=== PATIENT | female | born 1980 | race Caucasian/White ===

== ENCOUNTER 2018-09-06 15:45 | Observation (INO) | payer OTHER ==
[~2018-09-06] VITALS: Ht 165.1 cm; Wt 79.4 kg
[~2018-09-06 15:45] MED LIST: DOCU-119 PO; IBUP-2071 PO; LEVO50 PO; PREN1TAB80 PO
[2018-09-06 16:35] VITALS: BP 116/61
[2018-09-06 16:36] LABS: BASOPHILS % (AUTO) 0.6 % (0.0-2.0); EOSINOPHILS % (AUTO) 3.5 % (1.0-6.0); HEMOGLOBIN 12.4 g/dL (12.0-16.0); LYMPHOCYTES # (AUTO) 1.3 K/uL (1.0-4.8); LYMPHOCYTES % (AUTO) 22.1 % (22.0-44.0); MEAN CORPUSCULAR HGB CONC 35.4 G/dL (31.0-37.0); MEAN CORPUSCULAR VOLUME 96 fL (80-100); MONOCYTES # (AUTO) 0.4 K/uL (0.1-1.0); MONOCYTES % (AUTO) 5.9 % (2.0-9.0); NEUTROPHILS # (AUTO) 4.1 K/uL (1.8-7.7); NEUTROPHILS % (AUTO) 67.9 % (40.0-70.0); PLATELET COUNT (AUTO) 138 K/uL (150-450); RED BLOOD CELL COUNT(AUTO) 3.64 MIL/uL (4.00-5.20); RED CELL DISTRIBUTION WIDTH 14.4 % (11.5-14.5)
[2018-09-06] MEDS ORDERED: LEVO75 PO (16:40)
[2018-09-06 16:48] LABS: ANION GAP 10 mmol/L (8-16); CARBON DIOXIDE 23 mmol/L (22-29); CHLORIDE 105 mmol/L (98-107); CREATININE 0.54 mg/dL (0.60-1.30); GLOMERULAR FILTR. RATE CALC > 60 mL/min (>60); GLUCOSE,RANDOM 119 mg/dL (70-110); POTASSIUM 3.7 mmol/L (3.5-5.1); SODIUM SERUM 138 mmol/L (136-145); UREA NITROGEN, BLOOD 10 mg/dL (7-18)
[2018-09-06 16:52] LABS: ALANINE AMINOTRANSFERASE 50 U/L (12-78); ALBUMIN 2.3 g/dL (3.4-5.0); ALKALINE PHOSPHATASE 320 U/L (46-116); ASPARTATE AMINOTRANSFERASE 32 U/L (15-37); BILIRUBIN,TOTAL 0.4 mg/dL (0.1-1.0); TOTAL PROTEIN, SERUM 6.2 g/dL (6.4-8.2)
== END 2018-09-06 17:16 | disposition home or self-care (01) ==
LOC: OBSVTOIN 15:45 → INTOOBSV 15:45 → 4S 15:45
PROVIDERS: ADMIT Obstetrics & Gynecology; ATTEND Obstetrics & Gynecology
DX: O99.613 Diseases of the digestive system complicating pregnancy, third trimester (principal); O99.213 Obesity complicating pregnancy, third trimester; O24.419 Gestational diabetes mellitus in pregnancy, unspecified control; O09.523 Supervision of elderly multigravida, third trimester; Z3A.34 34 weeks gestation of pregnancy
CPT/HCPCS: 36415; 80053; 81002; 82239; 84550; 85025; G0378

== ENCOUNTER 2018-09-15 14:40 | Observation (INO) | payer OTHER ==
[~2018-09-15] VITALS: Ht 165 cm; Wt 78.0 kg
[~2018-09-15 14:40] MED LIST changes: -LEVO50 PO; +LEVO75 PO
[2018-09-15] MEDS ORDERED: CALC500T7 PO (16:25)
[2018-09-15 16:26] VITALS: BP 115/67
[2018-09-15] MEDS ORDERED: RINGERS SOLUTION,LACTATED 1,000 ML IV ONE (17:39)
[2018-09-15] MEDS ORDERED: RINGERS SOLUTION,LACTATED 1,000 ML IV SCH (17:39)
[2018-09-15] MEDS ORDERED: ONDANSETRON HCL 4 MG/2 ML VIAL IVP ONE (18:45)
== END 2018-09-15 20:20 | disposition home or self-care (01) ==
LOC: 4S 14:40
PROVIDERS: ADMIT Obstetrics & Gynecology; ATTEND Obstetrics & Gynecology
DX: O46.93 Antepartum hemorrhage, unspecified, third trimester (principal); O09.523 Supervision of elderly multigravida, third trimester; O62.9 Abnormality of forces of labor, unspecified; Z3A.35 35 weeks gestation of pregnancy
CPT/HCPCS: 81002; 96374; G0378; J2405; J7120

== ENCOUNTER 2018-09-17 00:29 | Inpatient (IN) | payer OTHER ==
[~2018-09-17] VITALS: Ht 165.1 cm; Wt 78.9 kg
[~2018-09-17 00:29] MED LIST changes: +CALC500T7 PO; -DOCU-119 PO; -IBUP-2071 PO
[2018-09-17] MEDS ORDERED: RINGERS SOLUTION,LACTATED 1,000 ML IV SCH (00:30)
[2018-09-17 01:09] LABS: GLUCOMETER DEV NAME(LOC) 4S.; GLUCOSE,POINT OF CARE 102 MG/DL (70-110)
[2018-09-17] MEDS: BETAMETHASONE SOLUSPAN 6 MG/ML 5 ML VIAL IM SCH ×2 (01:58→14:16)
[2018-09-17 02:20] LABS: BASOPHILS % (AUTO) 0.6 % (0.0-2.0); HEMATOCRIT 35.2 % (36-46); HEMOGLOBIN 11.9 g/dL (12.0-16.0); LYMPHOCYTES # (AUTO) 1.5 K/uL (1.0-4.8); MEAN CORPUSCULAR HEMOGLOBIN 33.6 pg (26.0-34.0); MEAN CORPUSCULAR HGB CONC 33.9 G/dL (31.0-37.0); MEAN CORPUSCULAR VOLUME 99 fL (80-100); MONOCYTES # (AUTO) 0.5 K/uL (0.1-1.0); MONOCYTES % (AUTO) 7.5 % (2.0-9.0); NEUTROPHILS # (AUTO) 4.3 K/uL (1.8-7.7); NEUTROPHILS % (AUTO) 65.9 % (40.0-70.0); PLATELET COUNT (AUTO)-OB 110 K/uL (150-450); RED BLOOD CELL COUNT(AUTO) 3.55 MIL/uL (4.00-5.20); RED CELL DISTRIBUTION WIDTH 15.1 % (11.5-14.5)
[2018-09-17 02:25] VITALS: BP 115/57
[2018-09-17] MEDS ORDERED: URSO300C4 PO (02:31)
[2018-09-17] MEDS: LEVOTHYROXINE SODIUM 75 MCG TABLET PO SCH (07:53)
[2018-09-17] MEDS ORDERED: RINGERS SOLUTION,LACTATED 1,000 ML IV PRN (14:28)
[2018-09-17] MEDS ORDERED: OXYTOCIN 30 UNITS/LACT RINGERS 500 ML IV ONE (14:28)
[2018-09-17] MEDS ORDERED: METOCLOPRAMIDE HCL 5 MG/ML 2 ML VIAL IVP PRN (14:30)
[2018-09-17] MEDS ORDERED: FentaNYL CITRATE-PF 100 MCG/2 ML VIAL IVP PRN (14:30)
[2018-09-17] MEDS ORDERED: CITRIC ACID/SODIUM CITRATE 30 ML SOLUTION UDCUP PO PRN (14:30)
[2018-09-17] MEDS: RINGERS SOLUTION,LACTATED 1,000 ML IV SCH ×2 (14:35→21:54)
[2018-09-17] MEDS ORDERED: MISOPROSTOL 25 MCG TABLET VG ONE (16:00)
[2018-09-17] MEDS ORDERED: OXYGEN THERAPY IH SCH (20:00)
[2018-09-17] MEDS ORDERED: MISOPROSTOL 50 MCG TABLET VG SCH (20:00)
[2018-09-17] MEDS ORDERED: ROPIVACAINE HCL/PF 0.2% 100 ML ED ONE (23:29)
[2018-09-18] MEDS ORDERED: OXYTOCIN 30 UNITS/LACT RINGERS 500 ML IV ONE (03:16)
[2018-09-18] MEDS ORDERED: IBUPROFEN 800 MG TABLET PO PRN (03:30)
[2018-09-18] MEDS ORDERED: GLYCERIN/WITCH HAZEL LEAF 40 PADS JAR TP PRN (03:30)
[2018-09-18] MEDS ORDERED: LANOLIN 7 GM OINTMENT TP PRN (03:30)
[2018-09-18] MEDS ORDERED: BENZOCAINE 20%/MENTHOL 56 GM SPRAY CANISTER TP PRN (03:30)
[2018-09-18] MEDS ORDERED: OxyCODONE HCL/ACETAMINOPHEN 5-325 MG TABLET PO PRN ×2 (03:30)
[2018-09-18] MEDS: LEVOTHYROXINE SODIUM 75 MCG TABLET PO SCH (06:33)
[2018-09-18] MEDS: MAGNESIUM HYDROXIDE SUSPENSION 30 ML UDCUP PO PRN ×2 (09:45→21:22)
[2018-09-19 05:51] LABS: BASOPHILS % (AUTO) 0.2 % (0.0-2.0); EOSINOPHILS % (AUTO) 0 % (1.0-6.0); HEMOGLOBIN 10.7 g/dL (12.0-16.0); LYMPHOCYTES # (AUTO) 1.9 K/uL (1.0-4.8); LYMPHOCYTES % (AUTO) 16.5 % (22.0-44.0); MEAN CORPUSCULAR HEMOGLOBIN 33.3 pg (26.0-34.0); MEAN CORPUSCULAR HGB CONC 33.5 G/dL (31.0-37.0); MEAN CORPUSCULAR VOLUME 100 fL (80-100); MONOCYTES # (AUTO) 0.8 K/uL (0.1-1.0); MONOCYTES % (AUTO) 6.8 % (2.0-9.0); NEUTROPHILS # (AUTO) 8.9 K/uL (1.8-7.7); NEUTROPHILS % (AUTO) 76.5 % (40.0-70.0); PLATELET COUNT (AUTO)-OB 107 K/uL (150-450); RED BLOOD CELL COUNT(AUTO) 3.21 MIL/uL (4.00-5.20); RED CELL DISTRIBUTION WIDTH 15.1 % (11.5-14.5)
[2018-09-19] MEDS: LEVOTHYROXINE SODIUM 75 MCG TABLET PO SCH (06:28)
[2018-09-19] MEDS: MAGNESIUM HYDROXIDE SUSPENSION 30 ML UDCUP PO PRN (08:30)
[2018-09-19] MEDS ORDERED: IBUP-2071 PO (10:19)
[2018-09-19] MEDS ORDERED: FERR-89 PO (10:20)
[2018-09-19] MEDS ORDERED: DSS100 PO (10:20)
== END 2018-09-19 11:20 | disposition home or self-care (01) | DRG 805 ==
LOC: OBSVTOIN 00:29 → 4S 00:29
PROVIDERS: ADMIT Obstetrics & Gynecology; ATTEND Obstetrics & Gynecology
PROC: 10E0XZZ Delivery of Products of Conception, External Approach (ICD-10-PCS; principal; 2018-09-18)
PROC: 0KQM0ZZ Repair Perineum Muscle, Open Approach (ICD-10-PCS; 2018-09-18)
PROC: 3E0R3BZ Introduction of Anesthetic Agent into Spinal Canal, Percutaneous Approach (ICD-10-PCS; 2018-09-18)
PROC: 00HU33Z Insertion of Infusion Device into Spinal Canal, Percutaneous Approach (ICD-10-PCS; 2018-09-18)
DX: O26.62 Liver and biliary tract disorders in childbirth (principal); K83.1 Obstruction of bile duct; Z37.0 Single live birth; O24.429 Gestational diabetes mellitus in childbirth, unspecified control; O70.1 Second degree perineal laceration during delivery; Z3A.36 36 weeks gestation of pregnancy
CPT/HCPCS: 82239; 86850; 86900; 86901; 90686; J0702; J2590; J2795; J7120